=== PATIENT | male | born 1995 | race Caucasian/White ===

== ENCOUNTER 2016-12-21 03:31 | Emergency (ER) | payer OTHER ==
[~2016-12-21] VITALS: Ht 177.8 cm; Wt 105.0 kg
[2016-12-21 03:37] VITALS: Ht 177.8 cm; Wt 105.0 kg
--- NOTE | 2016-12-21 05:35 | ERA ---
ER Documentation Chief Complaint Date/Time DATE: 12/21/16 TIME: 05:32 Chief Complaint tsticular pain since 2 days ago, back pain HPI Patient describes 2 days of testicular pain that is increased over the past 12 hours. Patient denies fever, weight loss, similar symptoms previously, discharge from penis, hematuria, dysuria, constipation, diarrhea, nausea, vomiting, headache, swelling of the scrotum or recent trauma to the area. Patient describes his pain as 9 out of 10. Patient is sexually active. Has taken Motrin with minimal relief. ROS All systems reviewed and are negative except as per history of present illness. Medications Home Meds Active Scripts Acetaminophen* (Tylenol*) 325 Mg Tablet, 1 TAB PO Q8 Y for PAIN AND OR ELEVATED TEMP, #20 TAB Prov:SARAH LAZCANO PA-C 12/21/16 Allergies Allergies: Coded Allergies: No Known Allergy (Unverified , 08/07/15) Physical Exam Vitals Vital Signs Date Time Temp Pulse Resp B/P Pulse Ox O2 Delivery O2 Flow Rate FiO2 12/21/16 03:37 98.3 95 20 135/76 98 Physical Exam Const: Obese 21-year-old male in moderate distress. Head: Atraumatic Eyes: Normal Conjunctiva ENT: Normal External Ears, Nose and Mouth. Neck: Full range of motion..~ No meningismus. Resp: Clear to auscultation bilaterally Cardio: Regular rate and rhythm, no murmurs Abd: Soft, non tender, non distended. Normal bowel sounds Skin: No petechiae or rashes Back: No midline or flank tenderness Ext: No cyanosis, or edema Neur: Awake and alert Psych: Normal Mood and Affect Results 24 hrs Current Medications Medications (Trade) Dose Ordered Sig/Gage Route PRN Reason Start Time Stop Time Status Last Admin Dose Admin Acetaminophen/ Hydrocodone Bitart ([place] (5/325)) 1 tab ONCE ONCE PO 12/21/16 08:00 12/21/16 08:01 DC 12/21/16 08:11 Procedures/MDM Was advised there is a patient with testicular pain is chief complaint that was severe. Went immediately to evaluate the patient while also ordering a Doppler ultrasound stat stat. After evaluation of the patient my suspicion for testicular torsion is lower as there is a positive cremasteric reflex bilaterally. Advised the patient that we will consider analgesics after Doppler ultrasound. At this time I do not believe is necessary for immediate surgical consult before results of Doppler ultrasound. Palpation of the testicles reproduced moderate pain. Point of location of maximal pain was in the left inguinal area. Patient is sexually active with multiple partners but denies any discharge. I immediately presented this case to my attending and he agrees with the current assessment and plan. Duplex ultrasound of the testicles was reviewed with Dr. Truong and reveal the following: Left varicocele. No evidence of testicular torsion. Pain medication was administered. Have discussed therapy options with patient and is verbally acknowledged that he understands. This time I very low suspicion for testicular torsion, epididymitis, or infection. Patient is currently stable. Will discharge the patient with return precautions as well as recommendation to follow-up with PCP for possible referral or possible elective repair. I reviewed the case with and she agrees with the assessment and plan. Departure Diagnosis: Primary Impression: Pain in testicle Additional Impression: Varicocele Condition: Stable Additional Instructions: Follow up with your PCP within the next 1-3 days for a more thorough evaluation and a possible referral to a specialist. Return the the emergency department immediately if symptoms worsen or change. If you have any questions regarding medications, ask your pharmacist or us before you leave. If any adverse reactions occur while taking your medications, discontinue the treatment and return to the emergency department immediately. Take your medications as directed, and complete the entire course of treatment. SARAH LAZCANO PA-C December 21, 2016 05:35
[2016-12-21] MEDS ORDERED: HYDROCODONE/APAP (5/325) TAB PO ONE (08:00)
[2016-12-21] MEDS ORDERED: ACET325T33 PO (08:18)
--- NOTE | 2016-12-21 08:50 | RADRPT ---
PROCEDURE: US Scrotal CLINICAL INDICATION: Testicle pain TECHNIQUE: Images were taken during real time interrogation of the scrotum. Color Doppler was also performed. COMPARISON: None FINDINGS: Right Testicle: Is normal in size measuring a 5.2 x 3.0 x 2.5 cm No mass is identified. The echotexture is normal. There is normal vascular flow on color Doppler. There is no hydrocele. No varicocele is evident. Left testicle: Is normal in size measuring 4.4 x 2.6 x 2.1 cm No mass is identified and The echotexture appears normal. There is normal vascular flow on color Doppler. There is no significant hydrocele. A left varicocele is evident. Right Epidydemus: Appears normal. Left Epedidymus: Appears normal. IMPRESSION: 1. Although the right testicle is mildly larger than the left, the testicles are otherwise unremark able with no intratesticular mass identified and with vascular flow demonstrated in each testicle. 2. Moderate left varicocele. 3. The epididymi appear unremarkable. Physician Breonna Date Time Electronically viewed and signed by Physician Breonna on 12/21/2016 08:50 /
[2016-12-21 09:16] LABS: URINE BLOOD (Dip) POC Negative (NEGATIVE)
== END 2016-12-21 09:15 | disposition home or self-care (01) ==
LOC: FTE 03:31
DX: N50.812 Left testicular pain (principal); I86.1 Scrotal varices
CPT/HCPCS: 76870; 81003; Z7502; Z7610

== ENCOUNTER 2016-12-26 01:54 | Emergency (ER) | payer OTHER ==
[~2016-12-26] VITALS: Ht 177.8 cm; Wt 102.5 kg
[~2016-12-26 01:54] MED LIST: ACET325T33 PO
[2016-12-26 01:57] VITALS: Ht 177.8 cm; Wt 102.5 kg
--- NOTE | 2016-12-26 02:40 | ERD ---
ER Documentation Chief Complaint Date/Time DATE: 12/26/16 TIME: 02:37 Chief Complaint testicular pain x 1week HPI 21-year-old male presents here in emergency department for complaints of left lower quadrant abdominal pain radiating to left groin and left testicular area started one week ago. Patient was seen here 5 days ago, for the same problem, had testicular ultrasound done, was told to have left varicocele. Patient continues of have the pain more severe, sharp pains 8/10 scale, accompanied with nausea. Patient denies hematuria or dysuria. Patient does any fever or chills. ROS All systems reviewed and are negative except as per history of present illness. Medications Home Meds Active Scripts Acetaminophen* (Tylenol*) 325 Mg Tablet, 1 TAB PO Q8 Y for PAIN AND OR ELEVATED TEMP, #20 TAB Prov:SARAH LAZCANO PA-C 12/21/16 Allergies Allergies: Coded Allergies: No Known Allergy (Unverified , 08/07/15) PMhx/Soc Medical and Surgical Hx: pt denies Medical Hx, pt denies Surgical Hx History of Surgery: No Anesthesia Reaction: No Hx Neurological Disorder: No Hx Respiratory Disorders: No Hx Cardiac Disorders: No Hx Psychiatric Problems: No Hx Miscellaneous Medical Probl: No Hx Alcohol Use: Yes (SOCIAL) Hx Substance Use: Yes (MARIJUANA) Hx Tobacco Use: Yes (1/2 ppd) Smoking Status: Current every day smoker FmHx Family History: No coronary disease, No diabetes, No other Physical Exam Vitals Vital Signs Date Time Temp Pulse Resp B/P Pulse Ox O2 Delivery O2 Flow Rate FiO2 12/26/16 01:57 97.4 88 20 145/80 100 Physical Exam GENERAL: The patient is well developed and appropriate for usual state of health, in no apparent distress. CHEST: Clear to auscultation bilaterally. There are no rales, wheezes or rhonchi. HEART: Regular rate and rhythm. No murmurs, clicks, rubs or gallops. No S3 or S4. ABDOMEN: Soft, left lower quadrant tenderness noted. Good bowel sounds. No rebound or guarding. No gross peritonitis. No gross organomegaly or masses. No Hutchinson sign or McBurney point tenderness. BACK: No midline or flank tenderness. EXTREMITIES: Equal pulses bilaterally. There is no peripheral clubbing, cyanosis or edema. No focal swelling or erythema. Full range of motion. Grossly neurovascularly intact. NEURO: Alert and oriented. Cranial nerves 2-12 intact. Motor strength in all 4 extremities with 5/5 strength. Sensation grossly intact. Normal speech and gait. SKIN: There is no apparent rash or petechia. The skin is warm and dry. HEMATOLOGIC AND LYMPHATIC: There is no evidence of excessive bruising or lymphedema. No gross cervical, axillary, or inguinal lymphadenopathy. : No scrotal swelling, no scrotal redness noted, no penile discharge noted. No lesions noted. Result Diagram: 12/26/16 0247 12/26/16 0247 Results 24 hrs Laboratory Tests Test 12/26/16 02:47 12/26/16 03:38 White Blood Count 8.210^3/ul Red Blood Count 4.8910^6/ul Hemoglobin 14.3g/dl Hematocrit 43.1% Mean Corpuscular Volume 88.1fl Mean Corpuscular Hemoglobin 29.2pg Mean Corpuscular Hemoglobin Concent 33.2g/dl Red Cell Distribution Width 12.0% Platelet Count 29003^3/UL Mean Platelet Volume 9.0fl Neutrophils % 56.6% Lymphocytes % 34.8% Monocytes % 6.9% Eosinophils % 1.2% Basophils % 0.4% Nucleated Red Blood Cells % 0.0/100WBC Neutrophils # 4.610^3/ul Lymphocytes # 2.810^3/ul Monocytes # 0.610^3/ul Eosinophils # 0.110^3/ul Basophils # 0.010^3/ul Nucleated Red Blood Cells # 0.010^3/ul Sodium Level 143mmol/L Potassium Level 4.2mmol/L Chloride Level 101mmol/L Carbon Dioxide Level 27mmol/L Anion Gap 19 Blood Urea Nitrogen 14mg/dl Creatinine 0.86mg/dl Glucose Level 95mg/dl Calcium Level 10.1mg/dl Total Bilirubin 0.3mg/dl Direct Bilirubin 0.00mg/dl Indirect Bilirubin 0.3mg/dl Aspartate Amino Transf (AST/SGOT) 44IU/L Alanine Aminotransferase (ALT/SGPT) 47IU/L Alkaline Phosphatase 87IU/L Total Protein 8.1g/dl Albumin 4.7g/dl Globulin 3.40g/dl Albumin/Globulin Ratio 1.38 Lipase 99U/L Urine Color LT. YELLOW Urine Clarity CLEAR Urine pH 6.5 Urine Specific [place] 1.020 Urine Ketones NEGATIVE Urine Nitrite NEGATIVE Urine Bilirubin NEGATIVE Urine Urobilinogen 1.0 E.U./dL Urine Leukocyte Esterase NEGATIVE Urine Hemoglobin NEGATIVE Urine Glucose NEGATIVE% Urine Total Protein NEGATIVE Current Medications Medications (Trade) Dose Ordered Sig/Gage Route PRN Reason Start Time Stop Time Status Last Admin Dose Admin Ketorolac Tromethamine (Toradol) 60 mg ONCE STAT IM 12/26/16 04:36 12/26/16 04:37 DC 12/26/16 04:50 PROCEDURE: CT abdomen and pelvis without intravenous contrast. CLINICAL INDICATION: Pain. TECHNIQUE: CT of the abdomen/pelvis was performed utilizing axial images with reconstructions in sagittal and coronal planes. The administered radiation dose is CTDI 17.9 mGy, DLP 1158 mGy-cm. COMPARISON: No pertinent prior examinations were submitted for comparison. FINDINGS: Visualized Chest: The visualized lung bases are clear. Abdomen: The spleen, pancreas, gallbladder,and adrenal glands are unremarkable. The liver is diffusely decreased in attenuation, compatible with hepatic steatosis. The kidneys are without hydronephrosis. No definite urinary calculi are seen. There is no evidence of bowel obstruction. The appendix is normal. No intra- abdominal free air is seen. There is no evidence of intra-abdominal adenopathy or free fluid. Pelvis: There is no evidence of pelvic adenopathy or free fluid. The prostate and bladder are unremarkable. Osseous structures: Unremarkable. IMPRESSION: No acute findings. Hepatic steatosis. RPTAT: HIKT .Salo Cardona MD, MD Date Time Electronically viewed and signed by .Salo Cardona MD, on 12/26/2016 03:12 .T/ CC: WILIAM SALINAS ART CLASS MODEL' PROCEDURE: Ultrasound of the scrotum. CLINICAL INDICATION: Pain. TECHNIQUE: Ultrasound of the scrotum was performed utilizing color Doppler flow imaging COMPARISON: 12/21/2016 FINDINGS: Right testis: Size (cm): 4.9 x 2.4 x 3.2 Echotexture: Normal Doppler flow: Present Epididymal head: Unremarkable Hydrocele: None Varicocele: None Left testis: Size (cm): 4.2 x 2 x 2.9 Echotexture: Normal Doppler flow: Present Epididymal head: Unremarkable Hydrocele: None Varicocele: None IMPRESSION: No evidence of testicular torsion. RPTAT: HIKT .Salo Cardona MD, MD Date Time Electronically viewed and signed by .Salo Cardona MD, on 12/26/2016 03:06 .T/ CC: WILIAM SALINAS NP Procedures/MDM Medical Decision Making: Patient's pain nonspecific at this time, can be musculoskeletal pain. There is low suspicion for abdominal emergencies at this time. Patients abdominal exam is normal at this time. Patients radiology exam does not show any abdominal emergencies at this time. There is low suspicion for appendicitis, cholecystitis, abdominal aortic aneurysms or peritonitis at this time. There is low suspicion for sepsis. Patient appears well and is hemodynamically stable.. Disposition: Home. Condition: Stable Prescription ibuprofen, [place] Instructions: Patient is advised to take medications as prescribed. Patient is advised to rest, increase fluid intake and do brat diet for next 1-2 days and progress as tolerated. Patient is advised that if symptoms are worse, severe abdominal pain, uncontrolled vomiting, high fever, severe flank pain, worst signs and symptoms, to return to the emergency department immediately. Otherwise, patient can follow up with primary care doctor in 5-7 days. Departure Diagnosis: Primary Impression: Abdominal pain Abdominal location: left lower quadrant Qualified Code: R10.32 - Left lower quadrant pain Additional Impression: Testicle pain Condition: Stable Patient Instructions: Abdominal Pain, Testicular Pain, Unclear Cause WILIAM SALINAS NP December 26, 2016 02:40
[2016-12-26 02:57] LABS: ADD SCAN DIFF NO
[2016-12-26 02:59] LABS: BASOPHILS % 0.4 % (0.0-2.0); EOSINOPHILS # 0.1 10^3/ul (0.0-0.5); EOSINOPHILS % 1.2 % (0.0-7.0); HEMATOCRIT 43.1 % (42.0-52.0); HEMOGLOBIN 14.3 g/dl (14.0-18.0); LYMPHOCYTES # 2.8 10^3/ul (0.8-2.9); LYMPHOCYTES % 34.8 % (15.0-51.0); MEAN CORPUSCULAR HEMOGLOBIN 29.2 pg (29.0-33.0); MEAN CORPUSCULAR HGB CONC 33.2 g/dl (32.0-37.0); MEAN CORPUSCULAR VOLUME 88.1 fl (82.0-101.0); MONOCYTE # 0.6 10^3/ul (0.3-0.9); MONOCYTES % 6.9 % (0.0-11.0); NEUTROPHIL # 4.6 10^3/ul (1.6-7.5); NEUTROPHILS % 56.6 % (39.0-77.0); PLATELET COUNT 343 10^3/UL (140-415); RED BLOOD COUNT 4.89 10^6/ul (4.70-6.10); WHITE BLOOD COUNT 8.2 10^3/ul (4.8-10.8)
--- NOTE | 2016-12-26 03:07 | RADRPT ---
PROCEDURE: Ultrasound of the scrotum. CLINICAL INDICATION: Pain. TECHNIQUE: Ultrasound of the scrotum was performed utilizing color Doppler flow imaging COMPARISON: 12/21/2016 FINDINGS: Right testis: Size (cm): 4.9 x 2.4 x 3.2 Echotexture: Normal Doppler flow: Present Epididymal head: Unremarkable Hydrocele: None Varicocele: None Left testis: Size (cm): 4.2 x 2 x 2.9 Echotexture: Normal Doppler flow: Present Epididymal head: Unremarkable Hydrocele: None Varicocele: None IMPRESSION: No evidence of testicular torsion. RPTAT: HIKT .Salo Cardona MD, MD Date Time Electronically viewed and signed by .Salo Cardona MD, on 12/26/2016 03:06 .T/
--- NOTE | 2016-12-26 03:13 | RADRPT ---
PROCEDURE: CT abdomen and pelvis without intravenous contrast. CLINICAL INDICATION: Pain. TECHNIQUE: CT of the abdomen/pelvis was performed utilizing axial images with reconstructions in s agittal and coronal planes. The administered radiation dose is CTDI 17.9 mGy, DLP 1158 mGy-cm. COMPARISON: No pertinent prior examinations were submitted for comparison. FINDINGS: Visualized Chest: The visualized lung bases are clear. Abdomen: The spleen, pancreas, gallbladder,and adrenal glands are unremarkable. The liver is diffusely decre ased in attenuation, compatible with hepatic steatosis. The kidneys are without hydronephrosis. No definite urinary calculi are seen. There is no evidence of bowel obstruction. The appendix is normal. No intra-abdominal free air is seen. There is no evidence of intra-abdominal adenopathy or free fluid. Pelvis: There is no evidence of pelvic adenopathy or free fluid. The prostate and bladder are unremarkable. Osseous structures: Unremarkable. IMPRESSION: No acute findings. Hepatic steatosis. RPTAT: HIKT .Salo Cardona MD, MD Date Time Electronically viewed and signed by .Salo Cardona MD, on 12/26/2016 03:12 .T/
[2016-12-26 03:14] LABS: ALBUMIN 4.7 g/dl (3.3-4.9)
[2016-12-26 03:15] LABS: POTASSIUM 4.2 mmol/L (3.5-5.1)
[2016-12-26 03:17] LABS: BILIRUBIN,INDIRECT 0.3 mg/dl (0-1.1); BILIRUBIN,TOTAL 0.3 mg/dl (0.2-1.3); CREATININE 0.86 mg/dl (0.61-1.24)
[2016-12-26 03:18] LABS: ALBUMIN/GLOBULIN RATIO 1.38; CALCIUM 10.1 mg/dl (8.4-10.2); TOTAL PROTEIN 8.1 g/dl (6.1-8.1)
[2016-12-26] MEDS ORDERED: KETOROLAC 60 MG INJ IM STA (04:36)
[2016-12-26 04:43] LABS: ADD UMIC NO; URINE BILIRUBIN (Dip) NEGATIVE (NEGATIVE); URINE BLOOD (Dip) NEGATIVE (NEGATIVE); URINE COLOR LT. YELLOW (YELLOW); URINE GLUCOSE (Dip) NEGATIVE (NEGATIVE); URINE KETONES (Dip) NEGATIVE (NEGATIVE); URINE LEUKOCYTE ESTERASE (Dip) NEGATIVE (NEGATIVE); URINE NITRITE (Dip) NEGATIVE (NEGATIVE); URINE TOTAL PROTEIN (Dip) NEGATIVE (NEGATIVE); URINE UROBILINOGEN (Dip) 1.0 E.U./dL (0.1-1.0)
[2016-12-26] MEDS ORDERED: IBUP-1542 PO (05:09)
[2016-12-26] MEDS ORDERED: HYDR-906 PO (05:09)
[2016-12-26 05:34] VITALS: BP 132/65; PULSE 78; RESP 20; TEMP 98.2
== END 2016-12-26 05:35 | disposition home or self-care (01) ==
LOC: FTE 01:54
DX: R10.32 Left lower quadrant pain (principal); F17.210 Nicotine dependence, cigarettes, uncomplicated
CPT/HCPCS: 74176; 76870; 80053; 81003; 83690; 85025; J1885; 36415; 96372

== ENCOUNTER 2017-01-19 01:42 | Emergency (ER) | payer OTHER ==
[~2017-01-19] VITALS: Wt 99.0 kg
[~2017-01-19 01:42] MED LIST changes: +HYDR-906 PO; +IBUP-1542 PO
[2017-01-19 02:35] VITALS: BP 151/90; PULSE 94; RESP 20; TEMP 98.1
[2017-01-19] MEDS ORDERED: ACETAMINOPHEN 325 MG TAB PO ONE (03:00)
--- NOTE | 2017-01-19 03:05 | ERD ---
ER Documentation Chief Complaint Date/Time DATE: 01/19/17 TIME: 03:01 Chief Complaint Headache pt thinks he slip. ETOH HPI This 21-year-old male presents emergency room with a headache for 2 weeks. He thinks he may have tripped and hit his head at the beginning of the 2 weeks. This is not the worst headache of his life just that he keeps coming. He admits to drinking beer earlier in the evening. Denies being intoxicated currently. He has no neurological deficits or weaknesses. No neck pain or back pain ROS All systems reviewed and are negative except as per history of present illness. Medications Home Meds Active Scripts Hydrocodone/Acetaminophen ([place] 5-325 Tablet) 1 Each Tablet, 1 TAB PO Q6H Y for SEVERE PAIN LEVEL 7-10, #20 TAB Prov:WILIAM SALINAS ROLLING ATTENDANT 12/26/16 Ibuprofen* (Motrin*) 600 Mg Tab, 600 MG PO Q6H Y for PAIN AND OR ELEVATED TEMP, #30 TAB Prov:WILIAM SALINAS NP 12/26/16 Acetaminophen* (Tylenol*) 325 Mg Tablet, 1 TAB PO Q8 Y for PAIN AND OR ELEVATED TEMP, #20 TAB Prov:SARAH LAZCANO PA-C 12/21/16 Allergies Allergies: Coded Allergies: No Known Allergy (Unverified , 08/07/15) PMhx/Soc Medical and Surgical Hx: pt denies Medical Hx, pt denies Surgical Hx History of Surgery: No Anesthesia Reaction: No Hx Neurological Disorder: No Hx Respiratory Disorders: No Hx Cardiac Disorders: No Hx Psychiatric Problems: No Hx Miscellaneous Medical Probl: No Hx Alcohol Use: Yes (SOCIAL) Hx Substance Use: Yes (MARIJUANA) Hx Tobacco Use: Yes (1/2 ppd) Smoking Status: Current every day smoker Physical Exam Vitals Vital Signs Date Time Temp Pulse Resp B/P Pulse Ox O2 Delivery O2 Flow Rate FiO2 01/19/17 02:35 98.1 94 20 151/90 100 Room Air 01/19/17 01:45 98.1 103 20 137/80 100 Physical Exam Const: [] No distress Head: Atraumatic Eyes: Normal Conjunctiva, EOMI, PERRLA ENT: Normal External Ears, Nose and Mouth. Neck: Full range of motion..~ No meningismus. No midline tenderness. Skin: No petechiae or rashes Back: No midline or flank tenderness Ext: No cyanosis, or edema Neur: Awake and alert and oriented 3, no slurred speech, cranial nerves II through XII intact, no cerebellar deficits, normal gait Psych: Normal Mood and Affect Results 24 hrs Current Medications Medications (Trade) Dose Ordered Sig/Gage Route PRN Reason Start Time Stop Time Status Last Admin Dose Admin Acetaminophen (Tylenol Tab) 650 mg ONCE ONCE PO 01/19/17 03:00 01/19/17 03:01 01/19/17 02:43 Procedures/MDM Headache with normal neurological exam and possible head injury.. Patient went to CAT scan. While he was receiving the CAT scan he got up off of the table so that he was leaving and walked out of the hospital. He declined further testing as stated he just wanted to go home. He did not wait for discharge instructions and simply left. CT head interpretation: CT head was not completed in the cannot make a full ruling from the information obtained. Left AMA. Departure Diagnosis: Primary Impression: Acute headache Condition: Stable MIKE DOUGLASS DO Jan 19, 2017 03:05
--- NOTE | 2017-01-20 16:59 | RADRPT ---
PROCEDURE: CT Brain without contrast. CLINICAL INDICATION: Trauma. Headache. TECHNIQUE: No images were obtained as the patient was uncooperative. COMPARISON: None available FINDINGS: No images obtained. IMPRESSION: 1. Incomplete study. RPTAT: QQ .Sukumar Zayas MD, Date Time Electronically viewed and signed by .Sukumar Zayas MD, MD on 01/20/2017 16:59 .R/
== END 2017-01-19 03:10 | disposition left against medical advice (07) ==
LOC: E/R 01:42
DX: R51 Headache (principal); F17.210 Nicotine dependence, cigarettes, uncomplicated
CPT/HCPCS: 70450; Z7502; Z7610